=== PATIENT | female | born 1960 | race Asian ===

== ENCOUNTER 2017-04-23 15:30 | Emergency (ER) | payer OTHER ==
[~2017-04-23] VITALS: Ht 160 cm; Wt 55.2 kg
[2017-04-23 15:35] VITALS: BP 165/93
[2017-04-23] MEDS: methylPREDNISolone sod succ 125mg/2ml vial IM ONE (15:49)
[2017-04-23] MEDS: diphenhydrAMINE 50 mg/ml inj IM ONE (15:49)
[2017-04-23] MEDS ORDERED: AZIT-57 PO (16:42)
== END 2017-04-23 17:06 | disposition home or self-care (01) ==
LOC: EDSEX 15:31 → ER 15:31
DX: T78.40XA Allergy, unspecified, initial encounter (principal); R93.8 Abnormal findings on diagnostic imaging of other specified body structures; R07.89 Other chest pain; Z79.82 Long term (current) use of aspirin; X58.XXXA Exposure to other specified factors, initial encounter
CPT/HCPCS: 96372; 99284; J1200; J2930

== ENCOUNTER 2017-06-11 02:01 | Emergency (ER) | payer OTHER ==
[~2017-06-11] VITALS: Ht 152.4 cm; Wt 53.9 kg
[2017-06-11] MEDS ORDERED: normal saline 1000ML IV soln IVB ONE (02:20)
[2017-06-11] MEDS ORDERED: ondansetron/PF 4mg/2ml inj IV ONE (02:20)
[2017-06-11] MEDS ORDERED: glycopyrrolate 0.2mg/ml inj IV ONE (02:40)
[2017-06-11] MEDS ORDERED: ketorolac trometh. 30mg/ml inj. IV ONE (02:40)
[2017-06-11 03:08] LABS: BASOPHILS % (AUTO) 0.3 % (0-1); EOSINOPHILS # (AUTO) 0.1 X10'3 (0-0.9); EOSINOPHILS % (AUTO) 1.2 % (0-6); HEMATOCRIT 37.8 % (35.0-45.0); HEMOGLOBIN 12.9 g/dl (12.0-16.0); LYMPHOCYTES # (AUTO) 2.2 X10'3 (1.1-4.8); LYMPHOCYTES % (AUTO) 33.1 % (21-51); MEAN CORPUSCULAR HEMOGLOBIN 29.9 PG (27.0-31.0); MEAN CORPUSCULAR HGB CONC 34.3 % (33.0-36.5); MEAN CORPUSCULAR VOLUME 87.3 FL (78-98); MEAN PLATELET VOLUME 9.2 FL (7.4-10.4); MONOCYTES # (AUTO) 0.4 X10'3 (0-0.9); MONOCYTES % (AUTO) 6.7 % (2-12); NEUTROPHILS # (AUTO) 3.9 X10'3 (1.8-7.7); NEUTROPHILS % (AUTO) 58.7 % (42-75); PLATELET COUNT 166 X10'3 (140-440); RED BLOOD COUNT 4.32 X10'6 (4.20-5.60); WHITE BLOOD COUNT 6.7 X10'3 (4.5-11.0)
[2017-06-11 03:32] LABS: ALANINE AMINOTRANSFERASE 31 U/L (12-78); ALBUMIN 3.9 G/DL (3.4-5.0); ALBUMIN/GLOBULIN RATIO 1.1 (1.1-1.5); ALKALINE PHOSPHATASE 123 IU/L (46-116); ANION GAP 10 (8-16); ASPARTATE AMINO TRANSFERASE 15 U/L (10-37); BILIRUBIN,TOTAL 0.3 MG/DL (0.1-1.0); BLOOD UREA NITROGEN 23 MG/DL (7-18); BUN/CREATININE RATIO 28.4 (6.6-38.0); CALCIUM 10.1 MG/DL (8.5-10.1); CHLORIDE 104 MMOL/L (99-107); CREATININE 0.81 MG/DL (0.40-0.90); GLUCOSE 142 MG/DL (70-104); LIPASE 85 U/L (73-393); POTASSIUM 3.7 MMOL/L (3.5-5.1); SODIUM 140 MMOL/L (135-145); TOTAL CARBON DIOXIDE 26.4 MMOL/L (24-32); TOTAL PROTEIN 7.4 G/DL (6.4-8.2); eGFR 73 ML/MIN
[2017-06-11 03:33] LABS: INR 0.9 INR; PROTHROMBIN TIME 9.5 SECONDS (9.0-12.0)
[2017-06-11 03:57] LABS: CLARITY,URINE CLEAR (Clear); COLOR,URINE YELLOW (Yellow); GLUCOSE, URINE NEGATIVE (Neg); KETONES,URINE NEGATIVE (Neg); LEUKOCYTE ESTERASE ,URINE NEGATIVE (Neg); NITRITES, URINE NEGATIVE (Neg); OCCULT BLOOD,URINE SMALL (Neg); PROTEIN,URINE NEGATIVE (Neg); UROBILINOGEN,URINE 0.2 E.U/dL (0.2-1.0)
[2017-06-11 04:02] LABS: UA COLLECTION TYPE CLN CATCH MIDSTREAM
[2017-06-11 04:05] LABS: BACTERIA,URINE NONE SEEN /HPF (Neg); RBC,URINE 0-2 /HPF (0-2); SQUAMOUS EPITHELIAL CELL,UR FEW /LPF (FEW); WBC,URINE 0-4 /HPF (0-4)
[2017-06-11 04:06] LABS: MUCUS STRANDS NONE SEEN /LPF (Neg)
[2017-06-11] MEDS ORDERED: ONDA4TAB12 PO (05:02)
[2017-06-11] MEDS ORDERED: DICY10CA88 PO (05:02)
[2017-06-11 05:12] VITALS: BP 133/60
== END 2017-06-11 05:15 | disposition home or self-care (01) ==
LOC: ER 02:01
DX: R10.32 Left lower quadrant pain (principal); K76.0 Fatty (change of) liver, not elsewhere classified; Z88.8 Allergy status to other drugs, medicaments and biological substances; Z79.899 Other long term (current) drug therapy
CPT/HCPCS: 36415; 74176; 80053; 81001; 83690; 83880; 84484; 85025; 85610; 93005; 96361; 96374; 96375; 99285; J1885; J2405; J3490; J7030

== ENCOUNTER 2019-04-30 19:32 | Emergency (ER) | payer OTHER ==
[~2019-04-30] VITALS: Ht 157.5 cm; Wt 45.0 kg
[~2019-04-30 19:32] MED LIST: ONDA4TAB12 PO
[2019-04-30] MEDS ORDERED: ketorolac trometh. 30mg/ml inj. IV ONE (20:15)
[2019-04-30] MEDS ORDERED: normal saline 1000ML IV soln IVB ONE (20:15)
[2019-04-30 20:19] LABS: BASOPHILS % (AUTO) 0.2 % (0-1); EOSINOPHILS # (AUTO) 0.1 X10'3 (0-0.9); EOSINOPHILS % (AUTO) 1.1 % (0-6); HEMATOCRIT 39.9 % (35.0-45.0); HEMOGLOBIN 13.5 g/dl (12.0-16.0); LYMPHOCYTES # (AUTO) 3.2 X10'3 (1.1-4.8); LYMPHOCYTES % (AUTO) 45.9 % (21-51); MEAN CORPUSCULAR HEMOGLOBIN 29.6 PG (27.0-31.0); MEAN CORPUSCULAR HGB CONC 33.7 g/dL (33.0-36.5); MEAN CORPUSCULAR VOLUME 87.7 FL (78-98); MEAN PLATELET VOLUME 8.2 FL (7.4-10.4); MONOCYTES # (AUTO) 0.5 X10'3 (0-0.9); MONOCYTES % (AUTO) 6.9 % (2-12); NEUTROPHILS # (AUTO) 3.2 X10'3 (1.8-7.7); NEUTROPHILS % (AUTO) 45.9 % (42-75); PLATELET COUNT 199 X10'3 (140-440); RED BLOOD COUNT 4.56 X10'6 (4.20-5.60); RED CELL DISTRIBUTION WIDTH 13.9 % (11.5-14.5); WHITE BLOOD COUNT 6.9 X10'3 (4.5-11.0)
[2019-04-30 20:34] LABS: ALANINE AMINOTRANSFERASE 41 U/L (12-78); ALBUMIN 4.1 G/DL (3.4-5.0); ALBUMIN/GLOBULIN RATIO 1.2 (1.1-1.5); ALKALINE PHOSPHATASE 116 IU/L (46-116); ANION GAP 8 (8-16); ASPARTATE AMINO TRANSFERASE 19 U/L (10-37); BILIRUBIN,TOTAL 0.3 MG/DL (0.1-1.0); BLOOD UREA NITROGEN 16 MG/DL (7-18); BUN/CREATININE RATIO 18.6 (6.6-38.0); CALCIUM 10.8 MG/DL (8.5-10.1); CHLORIDE 108 MMOL/L (99-107); CREATININE 0.86 MG/DL (0.40-0.90); GLUCOSE 125 MG/DL (70-104); LIPASE 76 U/L (73-393); POTASSIUM 3.7 MMOL/L (3.5-5.1); SODIUM 143 MMOL/L (135-145); TOTAL CARBON DIOXIDE 26.9 MMOL/L (24-32); TOTAL PROTEIN 7.6 G/DL (6.4-8.2); eGFR 68 ML/MIN
[2019-04-30 20:49] LABS: CLARITY,URINE CLOUDY (Clear); COLOR,URINE AMBER (Yellow); GLUCOSE, URINE NEGATIVE (Neg); KETONES,URINE NEGATIVE (Neg); LEUKOCYTE ESTERASE ,URINE TRACE (Neg); NITRITES, URINE NEGATIVE (Neg); OCCULT BLOOD,URINE LARGE (Neg); PROTEIN,URINE 30 mg/dl (Neg); UROBILINOGEN,URINE 0.2 E.U/dL (0.2-1.0)
[2019-04-30 20:51] LABS: URINE HCG NEGATIVE (NEG)
[2019-04-30 20:57] LABS: UA COLLECTION TYPE CLN CATCH MIDSTREAM
[2019-04-30 21:01] LABS: BACTERIA,URINE 1+ /HPF (Neg); RBC,URINE TNTC /HPF (0-2); SQUAMOUS EPITHELIAL CELL,UR MODERATE /LPF (FEW); WBC,URINE 0-4 /HPF (0-4)
[2019-04-30 21:02] LABS: CAL OXALATE CRYSTALS 1+ /HPF (NEGATIVE); MUCUS STRANDS MODERATE /LPF (Neg); TRANSITIONAL EPI CELLS,URINE FEW /HPF
[2019-04-30] MEDS ORDERED: NO HOME MEDS (21:19)
[2019-04-30] MEDS ORDERED: ONDA4TAB12 PO (21:42)
[2019-04-30] MEDS ORDERED: FLO0.4C PO (21:42)
[2019-04-30] MEDS ORDERED: HYDR-3965 PO (21:42)
[2019-04-30 21:48] VITALS: BP 137/73
--- NOTE | 2019-04-30 21:58 | NUR ---
PHARMACY ASKED TO RETIME THE FLOMAX FOR NOW INSTEAD OF TOMORROW NIGHT AT 2100.
[2019-04-30] MEDS ORDERED: tamsulosin 0.4mg capsule PO SCH (21:59)
== END 2019-04-30 21:50 | disposition home or self-care (01) ==
LOC: ER 19:33
DX: N23 Unspecified renal colic (principal); Z88.8 Allergy status to other drugs, medicaments and biological substances; Z79.899 Other long term (current) drug therapy
CPT/HCPCS: 36415; 74176; 80053; 81001; 81025; 83690; 85025; 87088; 96374; 99284; J1885; J7030

== ENCOUNTER 2024-12-14 10:36 | Emergency (ER) | payer BC, OTHER ==
[~2024-12-14] VITALS: Ht 152.4 cm; Wt 51.6 kg
[~2024-12-14 10:36] MED LIST changes: +NO HOME MEDS; +ONDA-243 PO; -ONDA4TAB12 PO
--- NOTE | 2024-12-14 11:15 | Physician Documentation ---
History of Present Illness General Chief Complaint: Abdominal Pain Stated Complaint: BOWEL COMPLICATIONS Time Seen by MD: 11:14 Primary Medical Doctor: UNKNOWN Mode of Arrival: POV History of Present Illness Initial Comments The patient is a 63-year-old female who complains of left lower abdominal pain patient states last evening she started developing left lower abdominal pain which has progressively worsened since yesterday. The patient's states that she has significant tenderness when pressure is applied to the left lower abdomen. She denies any urinary symptoms she denies any fevers or chills. She was seen at her primary care office and they checked a urinalysis which they said was negative and told her the patient to come to the emergency room. No history of diverticulitis. Patient's symptoms are moderate and persistent. Medication Reconciliation Allergies: Coded Allergies: aspirin (Verified Allergy, Intermediate, SWELLING ITCHING, 04/30/19) Scheduled Amox Tr/Potassium Clavulanate 875/125 MG (Augmentin 875/125 MG), 1 TAB PO BID Scheduled PRN ONDANSETRON ODT 4mg tablet (Ondansetron Odt), 1 TABLET PO Q6H PRN for nausea/vomiting Miscellaneous Medications Home Med List (No Home Medications), (Reported) Past Medical History Past Medical History: No Pertinent History Past Surgical History: no surgical history Drug Use: none Lives with: Family Lives In: Home Review of Systems All Other Systems at this time: Reviewed and Negative Physical Exam Physical Exam Vital Signs: Temperature: 98.1, Source: Temporal, Heart Rate: 67, Respiratory Rate: 16, BP: 135/82, Pulse Oximetry: 99, Weight: 51.600 Oxygen Flow Rate: 0 Physical Exam VITALS: Reviewed and as above. GENERAL: Alert, no apparent distress. HEENT: Normocephalic, atraumatic, PERRL, EOMI, dry mucosa, no erythema RESPIRATORY: Lungs clear, normal breath sounds, no respiratory distress. CHEST: No accessory muscle use, no retractions CV: Regular rate, rhythm, no edema, no murmur, No: JVD GI: Soft, tender left lower abdomen, bowels sounds present, no rebound, guarding, or rigidity BACK: No CVA tenderness, or swelling MUSCULOSKELETAL: No deformities, no edema SKIN: Warm and dry, no rash NEURO: Oriented x4, No motor or sensory deficit PSYCH: Normal mood and affect, no agitation Progress Results/Orders Results/Orders Orders - VERO VELEZ MD Ct Abdomen Pelvis (12/14/24 ) Completed Orders - VERO VELEZ MD Cbc/Diff (12/14/24 11:37) CMP (12/14/24 11:37) Procalcitonin (12/14/24 11:37) Urinalysis, Cult If Indicated (12/14/24 11:37) Ct Abdomen Pelvis (12/14/24 ) Ceftriaxone 2gm/D5w 50ml Bag (Rocephin 2 (12/14/24 13:00) Vital Signs 12/14/24 12/14/24 12/14/24 12/14/24 10:50 10:57 10:57 12:09 Temp 98.1 98.1 98.1 Pulse 77 67 84 Resp 18 16 18 B/P (MAP) 142/83 135/82 (99) 148/85 (106) Pulse Ox 98 99 98 O2 Flow Rate 0 0 0 12/14/24 12/14/24 13:16 14:12 Temp 98.1 98.1 Pulse 58 62 Resp 16 18 B/P (MAP) 143/84 (103) 142/85 Pulse Ox 98 96 O2 Flow Rate 0 Laboratory Tests Test 12/14/24 11:44 12/14/24 12:01 Urine Specimen Description Non-specified Urine Color Yellow Urine Clarity Clear Urine pH 5.5 Urine Specific [place] 1.010 Urine Protein Negative Urine Glucose (UA) Negative Urine Ketones Negative Urine Occult Blood Negative Urine Nitrite Negative Urine Bilirubin Negative Urine Urobilinogen 0.2 Urine Leukocyte Esterase Negative Urine Culture Indicated Not ind Volume Urine Centrifuged 10 ml Urine Comment White Blood Count 9.4 Red Blood Count 4.88 Hemoglobin 14.3 Hematocrit 42.2 Mean Corpuscular Volume 86.6 Mean Corpuscular Hemoglobin 29.3 Mean Corpuscular Hemoglobin Concent 33.8 Red Cell Distribution Width 14.1 Platelet Count 177 Mean Platelet Volume 9.0 Neutrophils (%) (Auto) 60.1 Lymphocytes (%) (Auto) 33.2 Monocytes (%) (Auto) 6.2 Eosinophils (%) (Auto) 0.3 Basophils (%) (Auto) 0.2 Neutrophils # (Auto) 5.6 Lymphocytes # (Auto) 3.1 Monocytes # (Auto) 0.6 Eosinophils # (Auto) 0.0 Basophils # (Auto) 0.0 CBC Comment Sodium Level 138 Potassium Level 4.1 Chloride Level 103 Carbon Dioxide Level 28.6 Anion Gap 6 L Blood Urea Nitrogen 12 Creatinine 0.80 Estimated GFR/1.73 m2 72 BUN/Creatinine Ratio 15.0 Glucose Level 125 H Calcium Level 10.7 H Total Bilirubin 0.9 Aspartate Amino Transf (AST/SGOT) 17 Alanine Aminotransferase (ALT/SGPT) 52 Alkaline Phosphatase 103 Total Protein 8.3 H Albumin 4.1 Globulin 4.2 Albumin/Globulin Ratio 1.0 L Procalcitonin < 0.05 Chemistry Comments EKG/XRAY/CT/US/VASC/MRI CT : Impression Patient: HOSSEIN PETTY Medical Record: [id number] [facility] : 1960, Age: 63 Sex: Female Location: ER Patient Status: [facility] ER Service Date/Time: 12/14/24 Ordering Physician: VERO VELEZ MD Exam: CT ABDOMEN PELVIS Exam: CT CT ABDOMEN PELVIS History: left sided abdominal pain Comparison Study: None Technique: Multidetector spiral CT of the abdomen was performed from lung bases to pubic symphysis. Imaging was performed without IV contrast. Axial, coronal and sagittal multiplanar reformats were obtained from the axial data set by the technologist. Radiation Dose : 1. Abdomen/Pelvis: CTDIvol 7 mGy, DLP 348 mGy*cm. Findings: Evaluation of solid organs is limited due to lack of intravenous contrast use. Lung Bases: No acute or significant lung base finding. Normal heart size. No pleural or pericardial effusion. Liver: The liver is normal in size. No focal lesions. Diffuse steatosis. Gallbladder and Biliary Tree: Unremarkable Spleen: Unremarkable Pancreas: The pancreas is grossly normal in appearance. Adrenal Glands: Unremarkable Kidneys: Kidneys are grossly normal without calculi or hydronephrosis. Bladder: Grossly unremarkable for degree of distention. Bowel: The stomach is grossly normal in appearance. Acute diverticulitis of the distal descending colon. No adjacent abscess identified. The appendix is not visualized; however, no secondary findings of acute appendicitis identified. Ascites: Absent Lymphadenopathy: No mesenteric, retroperitoneal or periportal lymphadenopathy. Abdominal Wall and Mesentery: Unremarkable. Vasculature: The visualized abdominal aorta is normal in size and caliber. Evaluation of abdominal and pelvic vessels is limited due to lack of intravenous contrast. Pelvic Organs: Unremarkable Musculoskeletal: No aggressive focal bony lesions, acute fractures or dislocation. IMPRESSION: 1. Acute diverticulitis of the distal descending colon. No adjacent abscess identified. Radiation optimization: All CT scans at this facility use at least one of these dose optimization techniques: automated exposure control mA and/or kV adjustment per patient size (includes targeted exams where dose is matched to clinical indication) or iterative reconstruction. Electronically Signed by:PACHECO MARIE MD Date & Time: 12/14/24 1217 Dictated by: PACHECO MARIE MD Dictation date and time: 12/14/24 1140 Primary Care Provider: NO PRIMARY CARE PROVIDER cc: VERO VELEZ MD ~ Medical Decision Making Findings Patient is a 63-year-old female presents with lower abdominal pain on the left side over the last day. The patient is nontoxic the patient had discrete tenderness in the left lower quadrant without any peritoneal signs the patient is labs were fairly unremarkable her white count was normal the patient has a CT which demonstrated some evidence of diverticulitis in the left lower quadrant there was no evidence of any bowel perforation the patient was given the option to stay in the hospital and she wants to be discharged home the patient will be given antibiotics and discharged the patient was given antibiotics here in the emergency room previous hospitalizations were reviewed the patient's pulse oximetry was interpreted as adequate normal in the patient's case monitor was interpreted as sinus rhythm patient has been advised to return for any worsening of symptoms patient will be discharged on Augmentin. Departure Impression: Primary Impression: Diverticulitis Discharge Instructions: Diverticulitis, [id number] Referrals: NO PRIMARY CARE PROVIDER (PCP) Prescriptions Amox Tr/Potassium Clavulanate 875/125 MG (Augmentin 875/125 MG) 875 Mg-125 Mg Tablet 1 TAB PO BID, #20 TAB Prov: VERO VELEZ MD 12/14/24 Signature Scribe Signature: no scribe Attestation: The note accurately reflects work and decisions made by me.Vero Velez MD 12/16/24 04:52 VERO VELEZ MD Dec 14, 2024 11:15
[2024-12-14 12:14] LABS: MEAN PLATELET VOLUME 9.0 FL (7.4-10.4); RED CELL DISTRIBUTION WIDTH 14.1 % (11.5-14.5)
[2024-12-14 12:15] LABS: LEUKOCYTE ESTERASE ,URINE NEGATIVE (Neg); NITRITES, URINE NEGATIVE (Neg); OCCULT BLOOD,URINE NEGATIVE (Neg)
[2024-12-14 12:18] LABS: UA COLLECTION TYPE NON-SPECIFIED
--- NOTE | 2024-12-14 12:19 | RADIOLOGY REPORT ---
Exam: CT CT ABDOMEN PELVIS History: left sided abdominal pain Comparison Study: None Technique: Multidetector spiral CT of the abdomen was performed from lung bases to pubic symphysis. Imaging was performed without IV contrast. Axial, coronal and sagittal multiplanar reformats were ob tained from the axial data set by the technologist. Radiation Dose : 1. Abdomen/Pelvis: CTDIvol 7 mGy, DLP 348 mGy*cm. Findings: Evaluation of solid organs is limited due to lack of intravenous contrast use. Lung Bases: No acute or significant lung base finding. Normal heart size. No pleural or pericardial effusion. Liver: The liver is normal in size. No focal lesions. Diffuse steatosis. Gallbladder and Biliary Tree: Unremarkable Spleen: Unremarkable Pancreas: The pancreas is grossly normal in appearance. Adrenal Glands: Unremarkable Kidneys: Kidneys are grossly normal without calculi or hydronephrosis. Bladder: Grossly unremarkable for degree of distention. Bowel: The stomach is grossly normal in appearance. Acute diverticulitis of the distal descending col on. No adjacent abscess identified. The appendix is not visualized; however, no secondary findings o f acute appendicitis identified. Ascites: Absent Lymphadenopathy: No mesenteric, retroperitoneal or periportal lymphadenopathy. Abdominal Wall and Mesentery: Unremarkable. Vasculature: The visualized abdominal aorta is normal in size and caliber. Evaluation of abdominal a nd pelvic vessels is limited due to lack of intravenous contrast. Pelvic Organs: Unremarkable Musculoskeletal: No aggressive focal bony lesions, acute fractures or dislocation. IMPRESSION: 1. Acute diverticulitis of the distal descending colon. No adjacent abscess identified. Radiation optimization: All CT scans at this facility use at least one of these dose optimization esther hniques: automated exposure control mA and/or kV adjustment per patient size (includes targeted exam s where dose is matched to clinical indication) or iterative reconstruction.
[2024-12-14 12:35] LABS: CREATININE 0.80 MG/DL (0.40-0.90); TOTAL CARBON DIOXIDE 28.6 MMOL/L (24-32); eCRCL 52 ML/MIN; eGFR 72 ML/MIN
[2024-12-14] MEDS: CefTRIAXone 2gm/D5W 50ml BAG 50 ML IV ONE (13:08)
[2024-12-14] MEDS ORDERED: AMOX-580 PO (13:47)
[2024-12-14 14:12] VITALS: BP 142/85; PULSE 62; RESP 18; TEMP 98.1; O2SAT 96
== END 2024-12-14 14:14 | disposition home or self-care (01) ==
LOC: ER 10:37
DX: K57.32 Diverticulitis of large intestine without perforation or abscess without bleeding (principal); Z88.6 Allergy status to analgesic agent
CPT/HCPCS: 36415; 74176; 80053; 81003; 84145; 85025; 96365; 99285; J0696